=== PATIENT | female | born 1995 | race Caucasian/White ===

== ENCOUNTER 2016-05-11 20:03 | Emergency (ER) | payer OTHER ==
--- NOTE | 2016-05-11 20:07 | EDPHY ---
H & P Time Seen by Provider: 05/11/16 20:06 HPI/ROS: CHIEF COMPLAINT: Altered mental status HISTORY OF PRESENT ILLNESS: Consumes 3 pot edibles and was brought in by friends with altered mental status and difficulty walking and question of trouble breathing. Patient complains the room is spinning and she feels out of it. Admits to marijuana edible Gummi bears, but does not leave any other complaints. Apparently her friends had difficulty waking her up. She was very sleepy after the 3rd one. No associated seizure activity or trauma, just very sleepy. Not better or worse with anything. REVIEW OF SYSTEMS: Eye: no change in vision ENT: no sore throat Cardiac: no chest pain or syncope Pulmonary: no cough or SOB Abdomen: no vomiting, diarrhea, abdominal pain Musculoskeletal: no back pain Skin: no rash Neuro: no headache Constitutional: no fever : no urinary symptoms, denies A comprehensive 10 point review of systems is otherwise negative aside from elements mentioned in the history of present illness. PAST MEDICAL HISTORY: Negative Social history: No alcohol, only edibles, on control pills. General Appearance: Eyes are closed but open to voice. Eyes: No scleral icterus. ENT, Mouth: Normal mucous membranes. No tongue laceration or abrasion, extraocular motion intact. Respiratory: Normal respiratory effort, breath sounds equal, lungs are clear to auscultation. Cardiovascular: Regular rate and rhythm. Gastrointestinal: Abdomen is soft and non tender. Neurological: Responds appropriately to commands and moves all extremities. Face symmetric no clonus not hyperreflexic. Skin: Warm and dry, no rashes. Musculoskeletal: No peripheral edema and no joint swelling. Psychiatric: Not agitated. Emergency Department course/MDM: Placed on a monitor, supportive care, i-STAT ordered. 2020: I-STAT shows sodium 142, glucose 112, creatinine 1.1, hematocrit 42. Plan for serial observation. 5: Re-evaluated, is alert and does not have any medical complaints now. She took the 3 edibles in series because she was not feeling any affect after waiting sometime between them. Her clinical presentation is most likely explained by adverse reaction to edible cannabis. 2255: Still dizzy, additional IV fluid infusing, will just need to wait a little more time. DC when feels able. Constitutional: Initial Vital Signs Temperature (C) 37.3 C 05/11/16 20:05 Heart Rate 60 05/11/16 20:05 Respiratory Rate 16 05/11/16 20:05 Blood Pressure 99/55 L 05/11/16 20:05 O2 Sat (%) 94 05/11/16 20:05 O2 Delivery Mode Room Air Allergies/Adverse Reactions: No Known Allergies Allergy (Unverified 05/11/16 20:11) Home Medications: Medication Instructions Recorded NK [No Known Home Meds] 05/11/16 Medical Decision Making Differential Diagnosis: Differential for altered mental status considered including but not limited to hypoglycemia, drug ingestion, alcohol ingestion, head trauma or stroke or seizure. - Data Points Laboratory Results: 05/11/16 20:02 POC Hgb 14.3 gm/dL gm/dL (12.3-15.9) POC Hct 42 % % (35.5-47.5) POC Sodium 142 mEq/L mEq/L (134-144) POC Potassium 3.0 mEq/L L mEq/L (3.3-5.0) POC Chloride 102 mEq/L mEq/L (96-108) POC BUN 12 mg/dL mg/dL (7-23) POC Creatinine 1.1 mg/dL mg/dL (0.6-1.2) POC Glucose 112 mg/dL H mg/dL (70-100) Medications Given: Discontinued Medications Sodium Chloride (Ns) 1,000 mls @ 0 mls/hr IV ONCE ONE PRN Reason: Wide Open Stop: 05/11/16 22:33 Last Admin: 05/11/16 21:00 Dose: 1,000 mls Sodium Chloride (Ns) 1,000 mls @ 0 mls/hr IV ONCE ONE PRN Reason: Wide Open Stop: 05/11/16 22:33 Last Admin: 05/11/16 22:15 Dose: 1,000 mls Point of Care Test Results: 05/11/16 20:02 POC Sodium 142 POC Potassium 3.0 L POC Chloride 102 POC BUN 12 POC Creatinine 1.1 POC Glucose 112 H Departure - Departure Disposition: Home, Routine, Self-Care Clinical Impression: Adverse reaction to cannabis Condition: Good Instructions: Cannabis Abuse (ED) Referrals: Cinthia Mcintosh MD [Primary Care Provider] - As per Instructions
[2016-05-11 20:12] VITALS: RESP 16
[2016-05-11 22:32] VITALS: O2SAT 97
[2016-05-11] MEDS ORDERED: NS 1,000 ML IV ONE ×2 (22:32)
[2016-05-11 23:43] VITALS: BP 103/63; PULSE 65; TEMP 98.1
== END 2016-05-11 23:43 | disposition home or self-care (01) ==
DX: R41.82 Altered mental status, unspecified (principal); T40.7X5A Adverse effect of cannabis (derivatives), initial encounter
CPT/HCPCS: 82947-QW

== ENCOUNTER → 2016-12-03 | Outpatient (CLI) | payer OTHER | LOC: FIMAGING 09:03 | PROVIDERS: ATTEND Family Medicine | DX: N63.10 Unspecified lump in the right breast, unspecified quadrant (principal) ==

== ENCOUNTER → 2018-03-06 | Outpatient (CLI) | payer OTHER | LOC: FIMAGING 14:48 | PROVIDERS: ATTEND Family Medicine | DX: N63.13 Unspecified lump in the right breast, lower outer quadrant (principal) ==